=== PATIENT | male | born 1990 | race Two or more races ===

== ENCOUNTER 2020-04-04 06:28 | Emergency (ER) | payer MEDICAID ==
[~2020-04-04] VITALS: Ht 185.4 cm; Wt 102.1 kg
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
--- NOTE | 2020-04-04 06:46 | NUR ---
ED Nurse Note: ERMD at bedside
[2020-04-04 06:47] VITALS: BP 150/74
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
[2020-04-04] MEDS ORDERED: Tetanus/Diptheria/Pertussis IM ONE (07:00)
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
--- NOTE | 2020-04-04 09:20 | Diagnostic Imaging Report ---
Indication: Facial pain, trauma Technique: CT maxillofacial was performed utilizing automated exposure control without intravenous contrast material. Axial and coronal images were generated. Dose: Total Dose Length Product - DLP 1666.[address] Dose Index - CTDIvol(s) 68.7 mGy. Comparison: None Findings: There is a fracture involving the anterior nasal spine (coronal bone series image #57). There is minimal displacement. There is overlying soft tissue swelling and possible laceration. No additional acute facial bone fracture is seen. The bony orbits are intact. Globes are intact and symmetric. No infiltration into the orbital fat bilaterally. Zygomatic arches and pterygoid plates are intact and symmetric in appearance. Mastoid air cells and visualized paranasal sinuses are clear. Mandible appears intact. Bilateral temporal mandibular joints intact. IMPRESSION: Acute fracture of the anterior nasal spine with minimal displacement. Overlying soft tissue swelling and possible laceration. Correlation with physical exam recommended. The CT scanner at [facility] is accredited by the [employer] and the scans are performed using protocols designed to limit radiation exposure to as low as reasonably achievable to attain images of sufficient resolution adequate for diagnostic evaluation.
[2020-04-04] MEDS ORDERED: CEPHALEXIN500 MG ORAL (09:22)
--- NOTE | 2020-04-04 09:23 | Diagnostic Imaging Report ---
Indication: Leg pain status post injury Technique: 4 views of the left femur Comparison: None Findings: Bone mineralization within normal limits. No acute fracture or dislocations identified. Hip and knee joints are maintained. No radiopaque foreign body is visualized. A gonadal shield is noted in place. Impression: No acute fracture or dislocation.
--- NOTE | 2020-04-04 09:24 | Diagnostic Imaging Report ---
Indication: Knee pain status post injury Technique: 3 views of the left knee Comparison: None Findings: Bony mineralization within normal limits. No acute fracture or dislocation is identified. No suprapatellar joint effusion. No radiopaque foreign body. Impression: No acute fracture or dislocation.
[2020-04-04 09:45] VITALS: BP 142/71
--- NOTE | 2020-04-04 09:45 | NUR ---
ED Nurse Note: Pt cleared by health care Provider for discharge. DC instructions/prescription were given and explained to pt and verbalized understanding of teachings. All medical deviecs such as ID band removed. Pt is AAO x4, ambulatory and left with all personal belongings.
--- NOTE | 2020-04-04 09:50 | NUR ---
ED Nurse Note: report made [employer] # [id number]
== END 2020-04-04 09:45 | disposition home or self-care (01) ==
LOC: EMR 06:54
DX: S01.511A Laceration without foreign body of lip, initial encounter (principal); S02.2XXA Fracture of nasal bones, initial encounter for closed fracture; X58.XXXA Exposure to other specified factors, initial encounter; Y93.9 Activity, unspecified; Y92.9 Unspecified place or not applicable
CPT/HCPCS: 12013; 70450; 70486; 73552; 73560; 90471; 90715; Z7502; 99284

== ENCOUNTER 2020-04-11 19:12 | Emergency (ER) | payer MEDICAID ==
[~2020-04-11] VITALS: Ht 177.8 cm; Wt 95.3 kg
[~2020-04-11 19:12] MED LIST: CEPHALEXIN500 MG ORAL
[2020-04-11 19:35] VITALS: BP 130/76
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
--- NOTE | 2020-04-11 19:44 | Emergency Room Report ---
History of Present Illness General Chief Complaint: Wound Recheck/Suture Removal Source: Patient Present Illness HPI 29 YO male presents to the ED c/o having sutures on his upper lip that require removal. Pt. was seen here in the emergency department and had laceration repair 7 days ago. Patient denies pain or tenderness. Patient reports being up-to-date with his vaccinations. He denies bleeding, fevers, chills or discharge from the wound. 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 Eyes: bilateral eye normal inspection, bilateral eye PERRL ENT: hearing grossly normal, normal voice Neck: full range of motion Respiratory: lungs clear, normal breath sounds, speaking full sentences Cardiovascular #1: regular rate, rhythm Musculoskeletal: back normal, normal range of motion, gait/station normal, non- tender Neurologic: alert, motor strength/tone normal, oriented x3, sensory intact, responsive, speech normal Psychiatric: judgement/insight normal Skin: wd healing/no infection noted - healed laceration of the upper lip.- [address] Medical Decision Making PA Attestation Dr. Whiteside Is my supervising Physician whom patient management has been discussed with. Diagnostic Impression: Primary Impression: Encounter for removal of sutures ER Course 29 YO male presents to the ED c/o having sutures on his upper lip that require removal. Pt. was seen here in the emergency department and had laceration repair 7 days ago. Patient denies pain or tenderness. Patient reports being up-to-date with his vaccinations. He denies bleeding, fevers, chills or discharge from the wound. Ddx considered but are not limited to laceration, tendon injury, cellulitis,dehiscence. Vital signs: are WNL, pt. is afebrile H&PE are most consistent with: healed laceration of the upper lip. ORDERS: none required at this time, the diagnosis is clinical ED INTERVENTIONS: - 4 Sutures removed. DISCHARGE: At this time pt. is stable for d/c to home. Will provide printed patient care instructions, and any necessary prescriptions. Care plan and follow up instructions have been discussed with the patient prior to discharge. Last Vital Signs Date Time Temp Pulse Resp B/P (MAP) Pulse Ox O2 Delivery O2 Flow Rate FiO2 04/11/20 19:35 97.7 74 18 130/76 99 Room Air Disposition: HOME, SELF-CARE Condition: Stable Patient Instructions: Suture Removal, Care After Additional Instructions: Take medications as directed. Follow up with a Primary Care Provider in 3-5 days, even if your symptoms have resolved. Return sooner to ED if new symptoms occur, or current symptoms become worse. - Please note that this Emergency Department Report was dictated using [employer] supervisor technology software, occasionally this can lead to erroneous entry secondary to interpretation by the dictation equipment. Manisha Hernández Apr 11, 2020 19:44
== END 2020-04-11 20:30 | disposition home or self-care (01) ==
LOC: EMR 19:48
DX: Z48.02 Encounter for removal of sutures (principal); S01.511D Laceration without foreign body of lip, subsequent encounter; X58.XXXD Exposure to other specified factors, subsequent encounter
CPT/HCPCS: 99281